=== PATIENT | female | born 1930 | race Caucasian/White ===

== ENCOUNTER 2017-01-12 13:30 | Outpatient (RCR) | payer MEDICARE, MEDICAID | END 2017-01-18 | disposition home or self-care (01) | LOC: PTY 13:30 | DX: I63.40 Cerebral infarction due to embolism of unspecified cerebral artery (principal) | CPT/HCPCS: 97110; 97162; G8978; G8979 ==

== ENCOUNTER 2017-01-20 13:13 | Outpatient (RCR) | payer MEDICARE, MEDICAID | END 2017-02-18 | disposition home or self-care (01) | LOC: PTY 13:13 | DX: I63.40 Cerebral infarction due to embolism of unspecified cerebral artery (principal) | CPT/HCPCS: 97110; 97116; G8978; G8979 ==

== ENCOUNTER 2017-02-22 13:30 | Outpatient (RCR) | payer MEDICARE, MEDICAID | END 2017-03-20 | disposition home or self-care (01) | LOC: PTY 13:30 | DX: I63.40 Cerebral infarction due to embolism of unspecified cerebral artery (principal) ==

== ENCOUNTER 2017-03-21 13:00 | Outpatient (RCR) | payer MEDICARE, MEDICAID | END 2017-04-20 | disposition home or self-care (01) | LOC: PTY 13:00 | DX: I63.40 Cerebral infarction due to embolism of unspecified cerebral artery (principal) ==

== ENCOUNTER 2017-04-22 13:20 | Outpatient (RCR) | payer MEDICARE, MEDICAID | END 2017-05-20 | disposition home or self-care (01) | LOC: PTY 13:20 | DX: I63.40 Cerebral infarction due to embolism of unspecified cerebral artery (principal) ==